=== PATIENT | female | born 1930 | race Caucasian/White ===

== ENCOUNTER 2018-08-25 14:46 | Outpatient (CLI) | payer MEDICARE ==
[2018-08-25 15:22] LABS: #Basophils 0.1 thou/uL (0.0-0.2); #Eosinphils 0.2 thou/uL (0.0-0.7); #Lymphocytes 2.4 thou/uL (1.20-3.40); #Monocytes 0.7 thou/uL (0.11-0.59); #Neutrophils 7.8 thou/uL (1.40-6.50); %Basophils 0.7 % (0.0-1.0); %Eosinophils 1.5 % (0.0-10.0); %Lymphocytes 21.2 % (21.0-51.0); %Monocytes 6.6 % (0.0-10.0); %Neutrophils 69.9 % (42.0-75.0); Hemoglobin 13.5 g/dL (12.0-16.0); Mean Corpuscular HGB CONC 33.7 g/dL (32.0-36.0); Mean Corpuscular Hemoglobin 30.5 pg (27.0-31.0); Mean Corpuscular Volume 90.6 fL (78.0-98.0); Mean Platelet Volume 8.2 fL (7.4-10.4); Platelet Count 206 thou/uL (130-400); RBC Distribution Width 13.4 % (11.5-14.5); Red Blood Cell (RBC) Count 4.42 mill/uL (4.20-5.40); White Blood Cell (WBC) Count 11.1 thou/uL (4.8-10.8)
[2018-08-25 15:45] LABS: ALT (SGPT) 8 U/L (8-55); AST (SGOT) 15 U/L (5-34); Albumin 3.9 g/dL (3.4-4.8); Alkaline Phosphatase 108 U/L (40-150); Anion Gap 13 mmol/L (10-20); BUN (Urea Nitrogen) 8 mg/dL (9.8-20.1); Bilirubin, Total 0.7 mg/dL (0.2-1.2); Calc. Creatinine Clearance 0 mL/min (70-130); Calcium 9.8 mg/dL (7.8-10.44); Carbon Dioxide 28 mmol/L (23-31); Chloride 106 mmol/L (98-107); Estimated GFR-MDRD 49; Globulin 3.1 g/dL (2.4-3.5); Glucose 85 mg/dL (83-110); Potassium 3.8 mmol/L (3.5-5.1); Sodium 143 mmol/L (136-145)
--- NOTE | 2018-08-25 15:50 | RAD ---
EXAM: CHEST TWO VIEWS: 08/25/18 HISTORY: Cough and congestion. FINDINGS: There appears to be some minimal thickening of the inferior right major fissure. No confluent pneumonia. No significant costophrenic angle blunting to suggest acute effusion. IMPRESSION: Linear parenchymal change, evidence for some thickening of the right inferior major fissure without e vidence for pneumonia or acute edema or significant pleural effusion. Atherosclerosis of the aorta. POS: C
== END 2018-08-25 14:47 | disposition home or self-care (01) ==
LOC: SCSRAD 14:46
PROVIDERS: ATTEND Family Medicine
DX: R05 Cough (principal); N39.0 Urinary tract infection, site not specified; I70.0 Atherosclerosis of aorta; R91.8 Other nonspecific abnormal finding of lung field
CPT/HCPCS: 36415; 71046; 80053; 84443; 85025

== ENCOUNTER 2019-01-30 21:19 | Emergency (ER) | payer MEDICARE ==
[2019-01-30 21:55] LABS: #Basophils 0.1 thou/uL (0.0-0.2); #Eosinphils 0.1 thou/uL (0.0-0.7); #Lymphocytes 2.9 thou/uL (1.20-3.40); #Monocytes 0.5 thou/uL (0.11-0.59); #Neutrophils 4.6 thou/uL (1.40-6.50); %Basophils 0.8 % (0.0-1.0); %Eosinophils 1.5 % (0.0-10.0); %Lymphocytes 35.2 % (21.0-51.0); %Monocytes 6.2 % (0.0-10.0); %Neutrophils 56.3 % (42.0-75.0); Hemoglobin 14.2 g/dL (12.0-16.0); Mean Corpuscular HGB CONC 35.4 g/dL (32.0-36.0); Mean Corpuscular Hemoglobin 32.1 pg (27.0-31.0); Mean Corpuscular Volume 90.7 fL (78.0-98.0); Mean Platelet Volume 7.9 fL (7.4-10.4); Platelet Count 159 thou/uL (130-400); RBC Distribution Width 12.9 % (11.5-14.5); Red Blood Cell (RBC) Count 4.42 mill/uL (4.20-5.40); White Blood Cell (WBC) Count 8.1 thou/uL (4.8-10.8)
--- NOTE | 2019-01-30 22:09 | RAD ---
XR Chest 1 View Portable HISTORY: Fall with hip pain. COMPARISON: None. FINDINGS: Heart size and mediastinum are within normal limits. The lungs are clear of infiltrates. No rib fractures identified. The bones appear demineralized. IMPRESSION: No active intrathoracic disease.
--- NOTE | 2019-01-30 22:10 | RAD ---
XR Pelvis AP STANDARD HISTORY: Fall with sacrum and left hip pain. COMPARISON: None. FINDINGS: The bones are demineralized. The pelvic ring appears intact without evidence of fracture. A right hip prosthesis is in place. No fracture of the left hip. IMPRESSION: No evidence of fracture. Diffuse bony demineralization.
--- NOTE | 2019-01-30 22:11 | RAD ---
XR Knee Lt 4 View STANDARD HISTORY: Fall with knee and hip pain COMPARISON: None. FINDINGS: The bones are demineralized. 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 Medial an d lateral compartment narrowing is present. No joint effusion or fracture. IMPRESSION: No evidence of fracture.
--- NOTE | 2019-01-30 22:11 | RAD ---
XR Hip Lt 2-3 View HISTORY: Fall with hip pain. COMPARISON: None. FINDINGS: The bones are demineralized. Chondrocalcinosis is noted. There are no signs of fracture or dislocation. IMPRESSION: No evidence of fracture.
[2019-01-30] MEDS ORDERED: cloNIDine 0.1 MG TAB ONE (22:14)
[2019-01-30 22:16] LABS: ALT (SGPT) 10 U/L (8-55); AST (SGOT) 15 U/L (5-34); Albumin 3.9 g/dL (3.4-4.8); Alkaline Phosphatase 130 U/L (40-150); Anion Gap 12 mmol/L (10-20); BUN (Urea Nitrogen) 17 mg/dL (9.8-20.1); Bilirubin, Total 0.5 mg/dL (0.2-1.2); CK (CPK) 17 U/L (29-168); Calc. Creatinine Clearance 0 mL/min (70-130); Calcium 9.3 mg/dL (7.8-10.44); Carbon Dioxide 26 mmol/L (23-31); Chloride 106 mmol/L (98-107); Estimated GFR-MDRD 40; Globulin 2.9 g/dL (2.4-3.5); Glucose 104 mg/dL (83-110); Potassium 3.7 mmol/L (3.5-5.1); Protein, Total 6.8 g/dL (6.0-8.3); Sodium 140 mmol/L (136-145)
--- NOTE | 2019-01-30 22:29 | CT ---
CT Brain WO Con HISTORY: Fall with head injury COMPARISON: None. FINDINGS: There is generalized ventricular and sulcal prominence. There is decreased attenuation to t he periventricular white matter consistent with chronic white matter change. There are no signs of intracerebral hemorrhage or extra-axial fluid collections. The mastoid air cells and visualized sinus es are clear. IMPRESSION: No acute intracranial abnormalities.
[2019-01-30] MEDS ORDERED: traMADol HCl 50 MG TAB ONE (23:02)
[2019-01-30 23:10] LABS: Bilirubin Negative (Negative); Blood, Urine Small (Negative); Glucose, Urine (Dipstick) Negative (Negative); Leukocyte Large (Negative); Nitrite Negative (Negative); Protein, Urine (Dipstick) Trace mg/dL (Neg-Trace); Urobilinogen 0.2 mg/dL (Less than 2)
[2019-01-30 23:14] LABS: Clarity Clear (Clear)
[2019-01-30 23:15] LABS: Bacteria/HPF Rare-Few HPF (None Seen); RBC/HPF 0-3 HPF (0-3); Squamous Epithelial 0-3 HPF (0-3)
[2019-01-30 23:16] LABS: Other Microscopic Description Less than 2 mL rec'd
== END 2019-01-30 23:16 | disposition home or self-care (01) ==
LOC: ERS 21:19
DX: S80.02XA Contusion of left knee, initial encounter (principal); S70.02XA Contusion of left hip, initial encounter; R07.89 Other chest pain; I10 Essential (primary) hypertension; F03.90 Unspecified dementia, unspecified severity, without behavioral disturbance, psychotic disturbance, mood disturbance, and anxiety; Z87.891 Personal history of nicotine dependence; W19.XXXA Unspecified fall, initial encounter
CPT/HCPCS: 36415; 70450; 71045; 72170; 80053; 81003; 81015; 82550; 83880; 84484; 85025; 93005

== ENCOUNTER 2019-04-09 14:19 | Emergency (ER) | payer MEDICARE ==
--- NOTE | 2019-04-09 15:35 | RAD ---
Exam:Left ankle 3 views HISTORY: This fall. Pain. Swelling. COMPARISON: None FINDINGS: Possible displaced avulsion type injury suggested in the lateral malleolus, best appreciate d on the oblique projection. Associated lateral and to lesser extent medial soft tissue swelling. Ankle mortise appears be intact. IMPRESSION: Avulsion injury of the lateral malleolus. Associated soft tissue swelling.
[2019-04-09] MEDS ORDERED: Ibuprofen 200 MG TAB ONE (16:21)
== END 2019-04-09 16:40 ==
LOC: ERS 14:19
DX: S82.62XA Displaced fracture of lateral malleolus of left fibula, initial encounter for closed fracture (principal); I10 Essential (primary) hypertension; F03.90 Unspecified dementia, unspecified severity, without behavioral disturbance, psychotic disturbance, mood disturbance, and anxiety; Z87.891 Personal history of nicotine dependence; W18.30XA Fall on same level, unspecified, initial encounter
CPT/HCPCS: 29515